=== PATIENT | female | born 1965 | race Caucasian/White ===

== ENCOUNTER → 2016-05-11 | Day surgery (SDC) | payer BC ==
[2016-05-03 07:38] VITALS: Ht 167.6 cm; Wt 60.0 kg
[~2016-05-11] VITALS: Ht 167.6 cm; Wt 60.0 kg
[~2016-05-11] MED LIST: CLR10 PO; LIDOCAINE HCL 2% 2 ML VIAL (20MG/ML) ONE; MIDAZOLAM HCL 1 MG/ML 2ML VIAL ONE; ONDANSETRON INJ 2 MG/ML 2 ML VIAL ONE; PROPOFOL IV EMULSION 10 MG/ML 20 ML VIAL IV ONE; SODIUM CHLORIDE 0.9% 500ML 500 ML IV ONE
--- NOTE | 2016-05-11 10:24 | Endo History and Physical ---
History & Physical Date of Service: May 11, 2016. Chief Complaint: screening Referring Physician: Dr. Bree Justice History of Present Illness 50 yo CF who presents for screening colonoscopy. Past Surgical History Hx Cardiac Surgery: No Hx Internal Defibrillator: No Hx Pacemaker: No Hx Abdominal Surgery: Yes (D&C X2, TUBAL LIGATION) Hx of Implantable Prosthesis: No Hx Post-Op Nausea and Vomiting: No Hx Cancer Surgery: No Hx Thoracic Surgery: No Hx Orthopedic: No Hx Urinary Tract Surgery: No Family History None Social History Smoking Status: Never Smoker Hx Substance Use: No Hx Alcohol Use: No Allergies Coded Allergies: No Known Allergies (Verified , 05/11/16) Current Medications Reported Home Medications Medications Dose Route/Sig Max Daily Dose Days Date Category Claritin (Loratadine) 10 Mg Tab 10 Mg PO DAILY PRN 05/03/16 Reported Vital Signs Weight (Kilograms): 60 Height (Feet): 5 Height (Inches): 6 Date Time Temp Pulse Resp B/P Pulse Ox O2 Delivery O2 Flow Rate FiO2 05/11/16 09:46 36.6 59 18 111/57 98 Room Air Physical Exam General Appearance: WD/WN, no apparent distress Respiratory/Chest: Auscultation: breath sounds normal Cardiovascular: Heart Auscultation: RRR Abdomen: Bowel Sounds: normal Inspection & Palpation: soft, non-distended, no tenderness, guarding & rebound Assessment and Plan Assessment: 50 yo CF who presents for screening colonoscopy. Plan: Proceed with colonoscopy.
--- NOTE | 2016-05-11 11:01 | Discharge Instructions ---
Endoscopy Patient Instructions Date / Procedure(s) Performed May 11, 2016. Colonoscopy Allergy Information Coded Allergies: No Known Allergies (Verified , 05/11/16) Discharge Date / Findings May 11, 2016. Colon polyp Diverticulosis Internal hemorrhoids Medication Instructions OK to resume all medications today as prescribed Reported Home Medications Medications Dose Route/Sig Max Daily Dose Days Date Category Claritin (Loratadine) 10 Mg Tab 10 Mg PO DAILY PRN 05/03/16 Reported Provider Instructions Activity Restrictions - No exercising or heavy lifting for 24 hours. - Do not drink alcohol the day of the procedure. - Do not drive a car or operate machinery until the day after the procedure. - Do not make any important decisions or sign important papers in 24 hours after the procedure. Following Day: - Return to full activity which may include returning to work/school. Diet Start your diet with liquids and light foods (jello, soup, juice, toast). Then eat your usual diet if not nauseated. Treatment For Common After Affects For mild abdominal pain, bloating, or excessive gas: - Rest - Eat lightly - Lie on right side Follow-Up Information Follow-up with Dr. Bree Justice as scheduled Anesthesia Information What You Should Know You have had a procedure that required some medicine to reduce anxiety and discomfort. This treatment is called moderate sedation. After receiving the treatment, you may be sleepy, but you will be able to breathe on your own. The effects of the treatment may last for several hours. Follow these instructions along with Activity/Diet recommendations noted above: * Do NOT do anything where dizziness or clumsiness would be dangerous. * Rest quietly at home today, then you can be up and about tomorrow. * Have a responsible person stay with you the rest of today. * You may have had an I.V. today. If so, you may take the dressing off later today. Recommendations Call your doctor if: * Trouble breathing * Continuous vomiting for more than 24 hours * Temperature above 101 degrees * Severe abdominal pain or bloating * Pain not relieved by pain medicine ordered * There is increased drainage or redness from any incision * A large amount of rectal bleeding greater than 2-3 tablespoons. (If you had a polyp/s removed or have hemorrhoids, a small amount of blood - from the rectum is to be expected.) * You have any unanswered questions or concerns. IN THE EVENT OF A SERIOUS EMERGENCY, GO TO THE NEAREST EMERGENCY ROOM Your discharge instructions were prepared by provider Joshua Mi. Patient Instructions Signature Page Lory Loja Patient (or Guardian) Signature/Date: I have read and understand the instructions given to me by my caregivers. Caregiver/RN/Doctor Signature/Date: The above-named patient and/or guardian has received patient instructions on this date. + Original Patient Signature Page (only) stays with chart. Please make copy for patient.
--- NOTE | 2016-05-11 11:09 | GI REPORT ---
Procedure Date: 05/11/2016 10:09 AM Procedure: Colonoscopy Indications: Screening for colorectal malignant neoplasm Medicines: Monitored Anesthesia Care Complications: No immediate complications. Estimated Blood Loss: Estimated blood loss: none. Procedure: Pre-Anesthesia Assessment: - Prior to the procedure, a History and Physical was performed, and patient medications and allergies were reviewed. The patient's tolerance of previous anesthesia was also reviewed. The risks and benefits of the procedure and the sedation options and risks were discussed with the patient. All questions were answered, and informed consent was obtained. Prior Anticoagulants: The patient has taken no previous anticoagulant or antiplatelet agents. ASA Grade Assessment: II - A patient with mild systemic disease. After reviewing the risks and benefits, the patient was deemed in satisfactory condition to undergo the procedure. After I obtained informed consent, the scope was passed under direct vision. Throughout the procedure, the patient's blood pressure, pulse, and oxygen saturations were monitored continuously. The scope was introduced through the anus and advanced to the terminal ileum. The colonoscopy was performed without difficulty. The patient tolerated the procedure well. The quality of the bowel preparation was good. The terminal ileum, ileocecal valve, appendiceal orifice, and rectum were photographed. Findings: A 5 mm polyp was found in the cecum. The polyp was sessile. The polyp was removed with a hot snare. Resection and retrieval were complete. Multiple small-mouthed diverticula were found in the sigmoid colon. Non-bleeding internal hemorrhoids were found during retroflexion. The hemorrhoids were small. Impression: - One 5 mm polyp in the cecum, removed with a hot snare. Resected and retrieved. - Diverticulosis in the sigmoid colon. - Non-bleeding internal hemorrhoids. Recommendation: - Resume previous diet. - Continue present medications. - Await pathology results. - Repeat colonoscopy for surveillance based on pathology results. - Return to primary care physician as previously scheduled. Joshua Mi DO 05/11/2016 11:09:13 AM This report has been signed electronically. Note Initiated On: 05/11/2016 10:09 AM I attest to the content of the Intraoperative Record and orders documented therein, exceptions below
[2016-05-11 11:51] VITALS: BP 118/70; PULSE 54; O2SAT 98
--- NOTE | 2016-05-11 14:02 | Anesthesiology Progress Note ---
Anesthesia Post Op Note Date & Time May 11, 2016 at 14:02 Vital Signs Pain Intensity: 0 Vital Signs Past 12 Hours Date Time Temp Pulse Resp B/P Pulse Ox O2 Delivery O2 Flow Rate FiO2 05/11/16 11:51 54 16 118/70 98 Room Air 05/11/16 11:16 52 16 119/70 98 Room Air 05/11/16 11:01 50 16 102/59 98 Room Air 05/11/16 10:46 63 16 91/56 95 Room Air 05/11/16 09:46 36.6 59 18 111/57 98 Room Air Notes Mental Status: alert / awake / arousable, participated in evaluation Pt Amnestic to Procedure: Yes Nausea / Vomiting: adequately controlled Pain: adequately controlled Airway Patency, RR, SpO2: stable & adequate BP & HR: stable & adequate Hydration State: stable & adequate Anesthetic Complications: no major complications apparent
== END | disposition home or self-care (01) ==
LOC: C.GI 09:30
PROVIDERS: ATTEND Internal Medicine
DX: Z12.11 Encounter for screening for malignant neoplasm of colon (principal); D12.0 Benign neoplasm of cecum; K57.30 Diverticulosis of large intestine without perforation or abscess without bleeding; K64.8 Other hemorrhoids

== ENCOUNTER → 2016-09-12 | Outpatient (CLI) | payer BC ==
[~2016-09-12] MED LIST changes: -LIDOCAINE HCL 2% 2 ML VIAL (20MG/ML) ONE; -MIDAZOLAM HCL 1 MG/ML 2ML VIAL ONE; -ONDANSETRON INJ 2 MG/ML 2 ML VIAL ONE; -PROPOFOL IV EMULSION 10 MG/ML 20 ML VIAL IV ONE; -SODIUM CHLORIDE 0.9% 500ML 500 ML IV ONE
[2016-09-12 13:29] LABS: BLOOD UREA NITROGEN 13 mg/dl (7-18); BUN/CREATININE RATIO 17.7 (10-20); CARBON DIOXIDE 24 mmol/L (21-32); CHLORIDE 109 mmol/L (98-107); CHOLESTEROL 196 mg/dl (0-200); CREATININE 0.71 mg/dl (0.60-1.20); GLUCOSE 91 mg/dl (70-99); POTASSIUM 4.1 mmol/L (3.5-5.1); SODIUM 143 mmol/L (136-145); TRIGLYCERIDES 80 mg/dl (0-150); VERY LOW DENSITY LIPOPROT CALC 16 mg/dl
[2016-09-12 13:34] LABS: CALCIUM 8.8 mg/dl (8.5-10.1)
[2016-09-12 13:39] LABS: CHOLESTEROL/HDL RATIO 4.7; HDL CHOLESTEROL 42 mg/dl; LDL CHOLESTEROL CALCULATED 138 mg/dl
== END ==
LOC: C.LABPBG 07:32
PROVIDERS: ATTEND Family Medicine
DX: Z00.00 Encounter for general adult medical examination without abnormal findings (principal); E03.9 Hypothyroidism, unspecified; E78.5 Hyperlipidemia, unspecified

== ENCOUNTER → 2016-11-04 | Outpatient (CLI) | payer BC ==
[2016-11-04 12:22] LABS: THYROID STIMULATING HORMONE 5.44 uIu/ml (0.300-4.500)
== END | disposition home or self-care (01) ==
LOC: C.LABPBG 10:22
PROVIDERS: ATTEND Family Medicine
DX: E03.9 Hypothyroidism, unspecified (principal)

== ENCOUNTER → 2017-06-14 | Outpatient (CLI) | payer BC | END | disposition home or self-care (01) | LOC: C.LABPBG 07:29 | PROVIDERS: ATTEND Family Medicine | DX: E03.9 Hypothyroidism, unspecified (principal); E78.5 Hyperlipidemia, unspecified ==

== ENCOUNTER → 2017-10-23 | Outpatient (CLI) | payer BC | END | disposition home or self-care (01) | LOC: C.LABPBG 14:16 | PROVIDERS: ATTEND Family Medicine | DX: E03.9 Hypothyroidism, unspecified (principal) ==

== ENCOUNTER 2023-02-13 06:06 | Observation (INO) ==
--- NOTE | 2023-01-23 13:29 | PAT Medication Instructions ---
Medication Instructions Date of Service January 23, 2023 Home Medications Medication Instructions Recorded Synthroid 88 mcg tablet 88 mcg PO QAM Brand Name Only #90 07/14/22 (levothyroxine) tabs azelastine 137 mcg (0.1 %) nasal 2 spray intranasal DAILY PRN nasal 12/23/22 spray aerosol congestion #90 mL Synthroid 88 mcg tablet (levothyroxine) 88 mcg PO QAM Brand Name Only azelastine 137 mcg (0.1 %) nasal spray aerosol 2 spray intranasal DAILY PRN nasal congestion ibuprofen 200 mg tablet (Advil) 400 - 600 mg PO Q8H PRN Pain ASK your surgeon for instructions ibuprofen 200 mg tablet (Advil) 400 - 600 mg PO Q8H PRN Pain Take morning of surgery With a small sip of water, OTHERWISE NOTHING TO EAT OR DRINK AFTER MIDNIGHT: Synthroid 88 mcg tablet (levothyroxine) 88 mcg PO QAM Brand Name Only azelastine 137 mcg (0.1 %) nasal spray aerosol 2 spray intranasal DAILY PRN nasal congestion (if needed) Other Notes If you have any questions please call us at [phone] or [phone] or [phone] or [phone]
--- NOTE | 2023-01-30 10:19 | Anesthesiology Consultation ---
Date of Service January 30, 2023 Assessment & Plan (1) Encounter for pre-operative examination: - Infectious disease screening: Per assessment on 01/30/23: No known infectious disease contacts or current infectious disease symptoms. Patient Covid positive 12/29/2022 (home test)- sore throat, fever > resolved. Pt can proceed as scheduled without additional preop Covid testing or additional Covid contact precautions per current protocol. - S/P Right shoulder arthroscopy, extensive debridement, JOHN (08/20/20): [place] [facility] [place] Patient acceptable risk for surgery pending surgeon-ordered PCP preop evaluation (JERRY, appt 02/01). Chart Review Chart Review: Patient seen in Pre Admission Testing Teaching & Discussion Pre-Anesthesia Teaching/Discussion Notes: Instructed NPO after midnight before surgery,except medications with 15 cc of water. Medication instructions provided according to the PAT guidelines. History Surgery Operation Date: 02/13/23 10:35 Proposed Procedures p C5-C7 Anterior Cervical Discectomy and Fusion, Spinal Cord Monitoring - Darrel Alicea DO Height/Weight Height: 5 ft 6 in Weight: 54.4 kg Allergies Allergy/AdvReac Type Severity Reaction Status Date / Time No Known Allergies Allergy Verified 01/19/23 14:23 Medications Home Medications Medication Instructions Recorded Confirmed Last Taken azelastine 137 mcg (0.1 %) nasal 2 spray intranasal DAILY PRN nasal 12/23/22 01/19/23 Unknown spray aerosol congestion #90 mL ibuprofen 200 mg tablet (Advil) 400 - 600 mg PO Q8H PRN Pain 01/19/23 01/19/23 Unknown Synthroid 88 mcg tablet 88 mcg PO QAM Brand Name Only #90 01/30/23 Unknown (levothyroxine) tabs Past Medical History Medical History Degenerative cervical disc Diverticulosis Dyslipidemia Environmental allergies History of COVID-19 12/29/2022 (home test)- sore throat, fever > resolved Hypothyroidism Exercise / Class Metabolic Activity II 4-5 Yardwork/Stairs/Walk up hill Past Family History Family History Mother Lung cancer COPD (chronic obstructive pulmonary disease) Sister Skin cancer Thyroid disease Other No family history of adverse response to anesthesia Denies family history of Ovarian cancer Prostate cancer Myocardial infarction Breast cancer Colorectal cancer Past Surgical History Surgical History H/O cystoscopy History of colonoscopy History of surgical removal of pilonidal cyst History of wisdom tooth extraction S/P arthroscopy of shoulder Right shoulder arthroscopy, extensive debridement, JOHN (08/20/20): [place] [facility] [place] S/P dilatation and curettage S/P tubal ligation Past Anesthesia History No Hx of Anesthesia Complications and No Family Hx of Anesthesia Complications History of PONV No Hx of PONV and No Hx of Motion Sickness Social History Smoking Status: Never smoker Do You Dip or Chew Tobacco: No Hx Alcohol Use: Yes alcohol intake frequency: holidays/special occasions only substance use type: does not use Review of Systems Patient denies chest pain, shortness of breath, dyspnea on exertion, fever, chills, cough, wheezing, palpitations. Physical Exam Vital Signs VITALS BP 109/77 P 69 TEMP 98.6 SP02 95%RA RESP 18 PHYSICAL Mildly decreased cervical extension range of motion. Full TMJ range of motion. TMD 3 finger breaths Mallampati Score 1 Dentition: intact, + crowns (unknown location) Lungs: clear throughout to auscultation Cardiac: regular rate and rhythm, no murmurs noted Spine: normal Carotid arteries: negative bruit Extremities: no LE edema Lab Results Anesthesia Preop Results Results Anesthesia Widget: WBC 5.18 K/ul (4.8-10.8) 01/30/23 Hgb 12.6 g/dl (12.0-16.0) 01/30/23 Hct 38.7 % (37.0-47.0) 01/30/23 Plt 239 K/uL (130-400) 01/30/23 Na 140 mmol/L (136-145) 01/30/23 K 4.2 mmol/L (3.5-5.1) 01/30/23 Cl 106 mmol/L (98-107) 01/30/23 CO2 28 mmol/L (21-32) 01/30/23 BUN 13 mg/dl (6-23) 01/30/23 Creat 0.71 mg/dl (0.6-1.2) 01/30/23 Glucose Level 68 mg/dl (70-99(Fasting)) L 01/30/23 PT 10.9 Seconds (9.0-12.0) 01/30/23 PTT 27.3 Seconds (21.0-31.0) 01/30/23 INR 1.0 (0.9-1.1) 01/30/23 Urine Color Yellow 01/30/23 Urine Appearance Clear (Clear) 01/30/23 Urine pH 6.0 (4.5-7.5) 01/30/23 Urine Specific [place] 1.006 (1.000-1.030) 01/30/23 Urine Protein Negative (Negative) 01/30/23 Urine Glucose (UA) Negative (Negative) 01/30/23 Urine Ketones Negative (Negative) 01/30/23 Urine Blood Trace (Negative) H 01/30/23 Urine Nitrite Negative (Negative) 01/30/23 Urine Bilirubin Negative (Negative) 01/30/23 Urine Urobilinogen Negative (Negative) 01/30/23 Urine Leukocyte Esterase Negative (Negative) 01/30/23 Urine WBC (Auto) 1-5 /hpf (0-5) 01/30/23 Urine RBC (Auto) 0-4 /hpf (0-4) 01/30/23 Urine Hyaline Casts (Auto) 0 /lpf (0-5) 01/30/23 Urine Epithelial Cells (Auto) 10-20 /lpf (0-5) H 01/30/23 Urine Bacteria (Auto) Negative (Negative) 01/30/23 Blood Type B Positive 01/30/23 Antibody Screen NEGATIVE 01/30/23 Testing Electrocardiogram Date: 01/30/23 SB at 58bpm. "Otherwise normal ECG" Chest X-Ray Date: 01/30/23 Findings: + NAD
[~2023-02-13 06:06] MED LIST changes: +ACETAMINOPHEN 500 MG TAB PO SCH; -CLR10 PO; +CeleBREX 200 MG CAP PO SCH; +GABAPENTIN 600 MG DOSE PO SCH; +LR 15ML/HR IV SCH; +LR 60ML/HR IV SCH; +ceFAZolin 2000MG 2,000 MG/15 ML SYR IV SCH
[2023-02-13] MEDS ORDERED: LIDOCAINE 2% 2 ML VIAL/AMP(20MG/ML) INFIL ONE (07:00)
[2023-02-13] MEDS ORDERED: PROPOFOL IV EMULSION 10 MG/ML 20 ML VIAL IV ONE (07:00)
[2023-02-13] MEDS ORDERED: DEXAMETHASONE SOD INJ 4 MG/ML VIAL ONE (07:00)
[2023-02-13] MEDS ORDERED: ONDANSETRON INJ 2 MG/ML 2 ML VIAL ONE (07:00)
[2023-02-13] MEDS ORDERED: ROCURONIUM BROMIDE 10 MG/ML 5 ML VIAL IV ONE ×2 (07:00→08:17)
[2023-02-13] MEDS ORDERED: MIDAZOLAM HCL 1 MG/ML 2ML VIAL ONE (07:01)
[2023-02-13] MEDS ORDERED: fentaNYL citrate PF 100 MCG/2 ML VIAL ONE ×2 (07:01→09:36)
[2023-02-13] MEDS ORDERED: ceFAZolin 330 MG/ML 1 GM VIAL ONE (07:09)
[2023-02-13] MEDS ORDERED: DexMEDEtomidine HCL IV 100 MCG/ML VIAL IV ONE (07:14)
--- NOTE | 2023-02-13 07:41 | History & Physical Bridge Note ---
Date of Service February 13, 2023 History & Physical Bridge Note I have examined the patient, reviewed the History & Physical and in the interval since the performance of the History & Physical I have noted the following changes of clinical significance: no changes noted
--- NOTE | 2023-02-13 07:42 | History & Physical Report ---
Date of Service February 13, 2023 Assessment & Plan (1) Cervical stenosis of spine: Plan: C5-C7 anterior cervical discectomy and fusion History of Present Illness Chief Complaint: Neck and arm pain Primary Care Provider: Bree Justice DO This is a 57-year-old female who presents with chronic persistent neck and arm pain after failing course of nonoperative care she is here for surgical invention. Allergies Allergy/AdvReac Type Severity Reaction Status Date / Time No Known Allergies Allergy Verified 02/13/23 06:45 Home Medications Medication Instructions Recorded Confirmed Type azelastine 137 mcg (0.1 %) nasal 2 spray intranasal DAILY PRN nasal 12/23/22 02/13/23 Rx spray aerosol congestion #90 mL ibuprofen 200 mg tablet (Advil) 400 - 600 mg PO Q8H PRN Pain 01/19/23 02/13/23 History Synthroid 88 mcg tablet 88 mcg PO QAM Brand Name Only #90 01/30/23 02/13/23 Rx (levothyroxine) tabs Past Med/Surg History Medical History Degenerative cervical disc Diverticulosis Dyslipidemia Environmental allergies History of COVID-19 Hypothyroidism Surgical History H/O cystoscopy History of colonoscopy History of surgical removal of pilonidal cyst History of wisdom tooth extraction S/P arthroscopy of shoulder S/P dilatation and curettage S/P tubal ligation Family History Mother Lung cancer COPD (chronic obstructive pulmonary disease) Sister Skin cancer Thyroid disease Other No family history of adverse response to anesthesia Denies family history of Ovarian cancer Prostate cancer Myocardial infarction Breast cancer Colorectal cancer Social History Smoking Status: Never smoker Second Hand Exposure: Yes (as a child); Do You Dip or Chew Tobacco: No; Hx Alcohol Use: Yes Alcohol Intake Frequency: Monthly or Less Preferred Language: Khmer Communication Ability: Effective Visual Impairment: No Limitations Hearing Ability: Normal Product Director Required: No Beliefs That Will Affect Care: None marital status: Current Living Situation: Spouse current occupational status: retired current occupation: [employer] How many Children do You have: 2 How many Children do You have Comment: 2- 3 step children Feels Safe at Home: Yes Safety Concerns: Feels Safe At This Time Childhood Exposure to Second-Hand Smoke: Yes Diet: regular Diet Comment: regular caffeine: Yes during the past year weight has: remained stable Dental Care, Regularly: Yes Physical Activity Frequency: 3-4 Times per Week Seatbelt Use: always Sunscreen Use: Yes Assistive Devices: Glasses Assistive Devices Comment: glasses for distance only prn Physical Exam 2 Physical Exam: Patient is alert and oriented Heart regular rhythm lungs clear Results & Data Results & Data Vital Signs (Past 12 Hours) Vital Signs Temp Pulse Resp BP Pulse Ox O2 Del Method 02/13/23 06:47 36.5 C 65 18 110/71 97 Room Air
[2023-02-13] MEDS ORDERED: PHENYLEPHRINE 100MCG/ML 10ML SYR IV ONE (08:17)
[2023-02-13] MEDS ORDERED: SUGAMMADEX SODIUM 200 MG/2 ML VIAL IV ONE (08:17)
[2023-02-13] MEDS ORDERED: GLYCOPYRROLATE 0.2 MG/ML VIAL ONE (08:17)
[2023-02-13] MEDS ORDERED: ePHEDrine sulfate 50 MG/5 ML SYR ONE (08:17)
[2023-02-13] MEDS ORDERED: SODIUM CHLORIDE 0.9% PF INJ 10 ML VIAL ONE (08:32)
[2023-02-13] MEDS ORDERED: FLOSEAL HEMOSTATIC MATRIX 10ML TOP ONE (08:42)
--- NOTE | 2023-02-13 09:11 | Operative Report ---
Post Operative Report Pre & Post Diagnosis Operation Date: 02/13/23 07:45 Pre-Op Diagnosis: Cervical spinal stenosis with radiculopathy Post-Op Diagnosis: Same I identified the patient and participated in the time-out.: Yes Procedure Operation Date: 02/13/23 07:45 Actual Procedures 1. Anterior cervical discectomy with bilateral foraminotomies C5-C6-C7. #2 anterior cervical 13 to C5-C6 C6-C7. #3 placement Spira 6 mm cage at C5-C6 and 8 mm cage at C6-C7 both filled with I factor. #4 application of K2 M plate and screws from C5-C7. Surgeon Darrel Alicea, DO Card Doffer Evelina Zavaleta Estimated Blood Loss 10 Findings Consistent with Post-Op Diagnosis Specimens none Indications This is a 57-year-old female who presents above-mentioned diagnosis with failing since course of nonoperative care is here for surgical invention. Description of Procedure Patient was met with identified informed consent obtained. Patient was then taken to the operative suite underwent ablation placed in supine position jacks table with head Romero head order. All bony promises well-padded eyes inspected to ensure no external pressure placed upon. This point the anterior cervical spine was prepped draped normal sterile fashion. The assistance of fluoroscopy identified the C6 vertebral body. A transverse incision was placed along the right anterior aspect of the cervical spinal lines region. Blunt dissection with assistance of bipolar electrocautery to form down to and exposing the anterior cervical spine from C5-C7. Several tender retractors placed. Then performed a complete discectomy of C5-C6 obtain the uncovertebral joints bilaterally. [place] distracting pins utilized to assist in visualization. Removed all posterior fibers longitudinal ligament bilateral foraminotomies performed. A 5 mm Spira cage with I factor was then tapped in position. Then proceeded to C6-C7. Again complete discectomy performed out to the ankle bony joints bilaterally. [place] distracting pins again utilized. Removed all posterior annular fibers longitudinal ligament to perform bilateral foraminotomies. Endplates burred to subcortical bleeding bone and an 8 mm Spira cage with I factor tapped into position. Distracting apparatus was removed all anterior osteophytes burred to a smooth cortical surface and a K2 M plate and screws applied with the assistance of fluoroscopy. The incision was then copiously irrigated explored to ensure no damage to surrounding structures remaining bleeding. 10 round BENNETT drain inserted. The incision was then closed with 2 Vicryl in a fashion of 4 Monocryl for final closure Steri-Strips sterile dressings placed. Patient waken taken to PACU stable condition. Please note spinal cord monitoring was utilized at the procedure no changes noted. Lastly Evelina Zavaleta was present at the entire surgery and all the patient positioning complex portion of the surgery and final skin closure. I attest to the content of the Intraoperative Record and any orders documented therein. Any exceptions are noted below.
[2023-02-13] MEDS ORDERED: ATROPINE SULFATE 0.1 MG/ML 10ML SYR IV PRN (09:36)
[2023-02-13] MEDS ORDERED: ONDANSETRON INJ 2 MG/ML 2 ML VIAL IV PRN ×2 (09:36→11:49)
[2023-02-13] MEDS ORDERED: ePHEDrine sulfate 50 MG/ML AMP IV PRN (09:36)
[2023-02-13] MEDS: fentaNYL citrate PF 100 MCG/2 ML VIAL IV PRN ×4 (09:38→09:53)
--- NOTE | 2023-02-13 09:53 | Fluoroscopy Report ---
FL cervical 2-3V CLINICAL HISTORY: C5-C7 ACDF TECHNIQUE: 2 views were obtained with the C-arm in the OR with the above procedure. Total fluoroscopy time was 10.1 seconds. Radiation dose was 0.53 mGy. Comparison: Comparison is made to MRI cervical spine 05/14/2022 FINDINGS/IMPRESSION: Intraoperative images were obtained of ACDF placement at C3-C7. Please correlate with intraoperative fluoroscopy and operative report. ACT 112: Negative or not required by law. Electronically signed by: Juan Castañeda M.D. 02/13/2023 9:51 AM
--- NOTE | 2023-02-13 10:23 | Anesthesiology Progress Note ---
Date of Service February 13, 2023 Anesthesia Post Procedure Vital Signs Vital Signs: Temp Pulse Pulse Resp BP Pulse Ox O2 Del Method 02/13/23 10:20 36.3 C L 70 12 111/79 98 Nasal Cannula 02/13/23 10:10 72 14 113/72 98 Nasal Cannula 02/13/23 10:00 75 20 102/68 97 Nasal Cannula 02/13/23 09:50 76 14 115/75 97 Nasal Cannula 02/13/23 09:40 70 14 106/71 98 Nasal Cannula 02/13/23 09:30 89 16 120/81 92 Room Air 02/13/23 09:18 36.2 C L 97 H 18 139/81 98 Room Air 02/13/23 06:47 36.5 C 65 18 110/71 97 Room Air O2 Flow Rate 02/13/23 10:20 2 02/13/23 10:10 2 02/13/23 10:00 2 02/13/23 09:50 2 02/13/23 09:40 2 02/13/23 09:30 02/13/23 09:18 02/13/23 06:47 Pain Intensity Neck: Pain Intensity: 5 Transfer of Care Handoff Completed per policy Notes Mental Status: alert / awake / arousable Patient Amnestic to Procedure: Yes Nausea / Vomiting: adequately controlled Pain: adequately controlled Airway Patency, RR, SpO2: stable & adequate BP & HR: stable & adequate Hydration State: stable & adequate Anesthetic Complications: no major complications apparent and Pt Satisfied with anesthetic care
[2023-02-13] MEDS ORDERED: traMADol HCL 50 MG TABLET PO PRN (11:49)
[2023-02-13] MEDS ORDERED: ACETAMINOPHEN 1,000 MG/100 ML VIAL IV PRN (11:49)
[2023-02-13] MEDS ORDERED: LORazepam 0.5 MG in SYRINGE 0.25 ML IV PRN (11:49)
[2023-02-13] MEDS ORDERED: FAMOTIDINE 20 MG TAB PO PRN (11:49)
[2023-02-13] MEDS ORDERED: ACETAMINOPHEN 500 MG TAB PO PRN (11:49)
[2023-02-13] MEDS ORDERED: DO NOT ADMINISTER FLU VACCINE PRN (11:49)
[2023-02-13] MEDS ORDERED: LORazepam 0.5 MG TAB PO PRN (11:49)
[2023-02-13] MEDS ORDERED: hydrOXYzine HCl 25 MG TAB PO PRN (11:49)
[2023-02-13] MEDS ORDERED: AZELASTINE HCL 0.1% NASAL 200 SPRAYS/27,400 MCG BTL PRN (11:49)
[2023-02-13] MEDS ORDERED: HYDROmorphone INJ 1 MG/ML SYRINGE IV PRN (11:49)
[2023-02-13] MEDS ORDERED: SOD PHOSPHATE/SOD BIPHOSPHATE ENEMA 132 ML BTL PR PRN (11:49)
[2023-02-13] MEDS ORDERED: DO NOT ADMINISTER PNEUMOCOCCAL VACCINE PRN (11:49)
[2023-02-13] MEDS ORDERED: RACEPINEPHRINE 2.25% NEBU SOLN 0.5 ML VIAL INH PRN (11:49)
[2023-02-13] MEDS ORDERED: ONDANSETRON 4 MG OD TAB PO PRN (11:49)
[2023-02-13] MEDS ORDERED: NALOXONE HCL 0.4 MG/1 ML VIAL/CARP IV PRN (11:49)
[2023-02-13] MEDS ORDERED: ALUMINUM/MAGNESIUM SUSP 30 ML UDC PO PRN (11:49)
[2023-02-13] MEDS ORDERED: bisacodyL 10 MG SUPP PR PRN (11:49)
[2023-02-13] MEDS ORDERED: METOCLOPRAMIDE HCL INJ 5 MG/ML 2 ML VIAL IV PRN (11:49)
[2023-02-13] MEDS ORDERED: HYDROmorphone INJ 0.5 MG/0.5 ML SYR IV PRN (11:49)
[2023-02-13] MEDS ORDERED: dexAMETHasone 8 MG in SYRINGE 0 ML IV PRN (11:49)
[2023-02-13] MEDS ORDERED: diphenhydrAMINE Capsule 25 MG CAP PO PRN (11:49)
[2023-02-13] MEDS ORDERED: MAGNESIUM HYDROXIDE SUSP 30 ML UDC PO PRN (11:49)
[2023-02-13] MEDS ORDERED: PROMETHAZINE HCL 12.5 MG in SODIUM CHLORIDE 0.9% 50 ML IV PRN (11:49)
[2023-02-13] MEDS: LACTATED RINGER'S 1,000 ML IV SCH (14:10)
[2023-02-13] MEDS: ceFAZolin 1000MG 1,000 MG/7.5 ML SYR IV SCH (15:16)
[2023-02-13] MEDS ORDERED: DOCUSATE SODIUM/SENNA 50/8.6MG TAB PO SCH (21:00)
[2023-02-13] MEDS: oxyCODONE HCL IR 5 MG TAB (IMMEDIATE RELEASE) PO PRN (22:11)
[2023-02-14] MEDS: LACTATED RINGER'S 1,000 ML IV SCH (00:24)
[2023-02-14] MEDS: ceFAZolin 1000MG 1,000 MG/7.5 ML SYR IV SCH (00:25)
[2023-02-14] MEDS: oxyCODONE HCL IR 5 MG TAB (IMMEDIATE RELEASE) PO PRN (05:01)
[2023-02-14] MEDS ORDERED: POLYETHYLENE (MIRALAX) 17 GM PACK PO SCH (06:00)
[2023-02-14] MEDS ORDERED: LEVOTHYROXINE SODIUM 88 MCG TABLET PO SCH (06:30)
[2023-02-14] MEDS ORDERED: dexAMETHasone 6 MG in SYRINGE 0 ML IV SCH (09:00)
--- NOTE | 2023-02-14 09:38 | Discharge Summary ---
Date of Service February 14, 2023 Admission HPI Per Admitting Provider This is a 57-year-old female who presents with chronic persistent neck and arm pain after failing course of nonoperative care she is here for surgical invention. Principal Diagnosis Cervical spinal stenosis with radiculopathy Discharge Data Allergies Allergy/AdvReac Type Severity Reaction Status Date / Time No Known Allergies Allergy Verified 02/13/23 06:45 Procedures Performed Operation Date: 02/13/23 07:45 Actual Procedures p C5-C7 Anterior Cervical Discectomy and Fusion with Spinal Cord Monitoring(Not Applicable) - Darrel Alicea DO Ordered Studies 02/13/23 [place] cervical 2-3V Routine Hospital Course (1) Cervical stenosis of spine: Pain patient underwent anterior cervical discectomy and fusion tolerated this well was taken to the orthopedic for postoperative. Postoperatively she was swallowing well. No hoarseness. Arm symptoms markedly proved. Extra strength testing. BENNETT drain decreasing appropriately. Simply discharged home. Discharge orders instructions from the chart for further review. Total Time Total Time Spent Total Time Spent (In Minutes): 20 minutes Discharge Plan Discharge Items Patient Disposition: Home - Self-Care Reason For Visit: Spinal Stenosis, Cervical Region Discharge Diagnosis: Cervical spinal stenosis with radiculopathy Activity: As commented below Non-emergency contact: Primary Care Provider Call non-emergency contact if: you have any medication questions Follow-up/Referrals: Bree Justice DO [Primary Care Provider] - Diet: Regular Addtl Attending Provider Instructions: ACTIVITY RECOMMENDATIONS: SELF CARE INSTRUCTIONS AFTER CERVICAL FUSIONS 1. No smoking. Smoking drastically decreases the chance of a solid fusion. 2. No bending, lifting more than 5 pounds, or twisting (roll like a log when turning in bed). 3. You may shower 3 days after surgery. Thoroughly dry wound. Do not soak in the tub. 4. Cervical collar: Must be worn at all times including sleeping. You may remove the brace only to bath, eat and if you are sitting in a recliner. 5. Please walk as much as you can for exercise. Gradually increase the distance that you walk as your endurance increases. SPECIAL CARE INSTRUCTIONS: VERY IMPORTANT TO READ AND REVIEW A. Do not take any anti-inflammatory medications (i.e. Indocin, Advil, Aspirin, Naprosyn, Aleve, Motrin, etc.) as these may inhibit the chance of a solid fusion. Tylenol is okay to take. B. Your surgical incision has been closed with a cosmetic suture under the skin that will dissolve in about 6 weeks. In 14 days, you can use a pair of clean scissors and cut the suture that is left outside of the skin at the ends of your incision. C. Complications are uncommon, but please contact us if you have any signs or symptoms of: 1. wound infection (fever higher than 102.5 degrees F, redness, separation of wound, drainage, or increasing pain from the incision) 2. blood clots in legs (pain, swelling, redness and warmth in legs) 3. urinary tract infection (fever higher than 102.5 degrees, burning upon urination or increased frequency of urination) 4. nerve problems (inability to walk on your toes or heels, numbness, loss of bowel or bladder control) 5. any other symptoms that concern you. D. Please call the office at if you have any concerns or question s about your operation or recovery. MANAGING PAIN AFTER SPINAL SURGERY 1. Narcotic medication is intended for short-term use and will be provided for surgical pain. Surgical pain usually lasts for a period of 4-6 weeks. Narcotic medication includes Percocet, Vicodin, Darvocet, Tylenol #3 or Lortab. 2. Longer-term pain is more appropriately treated with non-narcotic medication such as Tylenol ES. 3. Muscle spasm is not appropriately treated with narcotics. Muscle relaxers such as Soma, Flexeril or Skelaxin can be used along with Tylenol ES. 4. Remember that we all live with some "aches and pains". This is not unusual or uncommon after an injury or as we get older. 5. We will provide appropriate medication within the normal guidelines of their prescribed use. We will also be very cautious and aware of potential abuse and extended duration of patients' medication needs. 6. Please allow 2-3 days to process refills. Prescriptions will not be mailed but must be picked up at the office. FOLLOW UP VISIT: Keep your scheduled follow-up appointment. Any questions, please call the office at . Pending Studies at Discharge: No Stand-Alone Forms: My [place], Smoking Cessation Medications and [place] Order Prescriptions: New tramadol 50 mg tablet 50 mg PO Q6H PRN (Reason: pain, moderate) Qty: 20 0RF oxycodone 5 mg tablet 5 mg PO Q6H PRN (Reason: pain) Qty: 20 0RF Continued azelastine 137 mcg (0.1 %) aerosol,spray 2 spray intranasal DAILY PRN (Reason: nasal congestion) Qty: 90 3RF levothyroxine [Synthroid] 88 mcg tablet 88 mcg PO QAM Qty: 90 1RF Rx Instructions: Brand Name Only. Discontinued ibuprofen [Advil] 200 mg Tablet 400 - 600 mg PO Q8H PRN (Reason: Pain) Discharge Orders: Discharge Order (Routine); Ordered 02/14/23 Ordered By: Darrel Alicea Admission Data Admit Date/Time: 02/13/23 09:16 Attending Provider: Darrel Alicea Admit Provider: Darrel Alicea Primary Care Provider: Bree Justice
== END 2023-02-14 10:56 | disposition home or self-care (01) ==
LOC: ASU 06:06 → PACUINP 06:06 → 3E 14:10